=== PATIENT | female | born 1955 ===

== ENCOUNTER → 2021-12-23 08:04 | Outpatient (BNVA) | payer OTHER, SELFPAY | PROVIDERS: PCP Internal Medicine; Visit Provider Nurse Practitioner Family | DX: G24.01 Drug induced subacute dyskinesia (principal); G21.11 Neuroleptic induced parkinsonism; Z79.899 Other long term (current) drug therapy | CPT/HCPCS: 99212 ==

== ENCOUNTER → 2022-11-25 08:00 | Outpatient (BNVA) | payer MEDICARE, SELFPAY | PROVIDERS: PCP Internal Medicine; Visit Provider Nurse Practitioner Family | DX: G21.11 Neuroleptic induced parkinsonism (principal); G24.01 Drug induced subacute dyskinesia; G47.33 Obstructive sleep apnea (adult) (pediatric); Z98.890 Other specified postprocedural states; Z79.899 Other long term (current) drug therapy | CPT/HCPCS: 99212 ==

== ENCOUNTER 2023-05-09 08:01 | Outpatient (AMB) | payer MEDICARE, SELFPAY ==
[2023-05-09 08:02] VITALS: BP 110/80; PULSE 79; O2SAT 97; BMI 26.8
--- NOTE | 2023-05-09 08:02 | A.OFFVIS_ITS ---
Intake Vital Signs 05/09/23 08:02 Height 5 ft 3 in Weight 151 lb 8 oz BMI 26.8 BP 110/80 Blood Pressure Location Rt brachial Position Sitting Pulse 79 Pulse Source Pulse Oximeter Pulse Oximetry (%) 97 Oxygen Delivery Method Room Air Intake Visit Reasons: 4 mo f/u for Parkinson Intake Note: Pt presents as a 4 month f/u for tremors. just still shaking about the same. pt states she's not sleeping well. Signwriter Required: No Allergies Seasonal Allergies Allergy (Mild, Verified 05/09/23 08:08) Unknown sulfamethoxazole [From Bactrim] Allergy (Mild, Verified 05/09/23 08:08) Rash trimethoprim [From Bactrim] Allergy (Mild, Verified 05/09/23 08:08) Rash valbenazine [From Ingrezza] Adverse Reaction (Mild, Verified 05/09/23 08:08) Shakiness HPI HPI Comments History of Present Illness0 Details 67-yr-old male presents for f/u visit. Pt denies any significant interval medical changes. However, she has been having increased allergy symptoms- cough and sneezing. Notes she has not had her allergy injections in a while as her previous credentialing specialist and she is trying to establish care with a new one. She has had a 20lb weight loss over the last 6 months- pt thinks she is eating less d/t her coughing and stress. She has been referred to ENT and pulmonology. She has a f/u sleep appointment to manage her CPAP- at [facility]. Pt is now taking her Amantadine 100mg qam and 150mg q afternoon. Her tremor is increased. She states that she uses her CPAP, but she needs help to put it on and has difficulty adjusting it if the mask moves. Her tremor makes it difficult for her. She states she cannot fall asleep or sleep at all- is porne to some dozing off during the day. [facility] Medical History (Updated 05/09/23 @ 09:26 by ALMA ROSA Diamond) Bipolar disorder Obstructive sleep apnea Surgical History H/O: hysterectomy History of appendectomy Hx of cataract surgery Family History Mother HTN (hypertension) Father Cancer Social History (Updated 05/09/23 @ 08:15 by Jayne Lowe [facility]) Alcohol intake: never Patient Tobacco Use Status: Former Tobacco user Review of Systems Const All systems reviewed & are unremarkable except as noted in HPI and below Physical Exam Vital Signs: Last Vital Signs Pulse 79 05/09/23 08:02 BP 110/80 05/09/23 08:02 Pulse Ox 97 05/09/23 08:02 Oxygen Delivery Method Room Air 05/09/23 08:02 BMI result Body Mass Index 26.8 Const General: cooperative and no acute distress HEENT Head: Yes normocephalic Resp Effort & Inspection: normal respiratory effort and able to speak in complete sentences Neuro Other: Mild head tremor. BUE postural tremor No dyskinesias FFM and foot taps- slow, decreased. General: patient oriented x3, gait normal and CN's II-XI intact bilaterally Cognition (Neuro): normal cognition Motor exam (neuro): 5/5 motor strength present throughout Psych Appearance: grossly normal Mental Status: mental status grossly normal Speech and movement: Clear speech present Affect: normal affect Attitude: cooperative Thought process: Normal thought process present Assessment & Plan Assessment & Plan (1) Neuroleptic induced parkinsonism: Comment: h/o risperdal, Geodon, Abilify, Seroquel use. Code(s): G21.11 - Neuroleptic induced parkinsonism (2) Tremor: Code(s): R25.1 - Tremor, unspecified (3) Drug induced subacute dyskinesia: Code(s): G24.01 - Drug induced subacute dyskinesia Plan Continue Amantadine 100mg qam and 150mg q afternoon. Discussed strategies to improve sleep hygiene- using bedroom primarily for sleep, avoiding electronics in bed, establishing a bedtime ritual, and increasing daytime physical activity. Pt may benefit from repeat HST to assess status of sleep apnea as she has had significant weight loss- possibly she does not require PAP tx any longer, which may help her sleep quality (owing to her difficulty managing the PAP mask). F/u w/ credentialing specialist, ENT, pulmonology. Future considerations- if tremor remains increased after her resp s/s are better managed, consider increasing Amantadine. f/u in 4 months or sooner prn. Coding Level of Care Code Est Pt Level 4 (16905) Diagnoses Neuroleptic induced parkinsonism G21.11 Tremor R25.1 Drug induced subacute dyskinesia G24.01
== END 2023-05-09 08:55 | disposition home or self-care (01) ==
PROVIDERS: Visit Provider Nurse Practitioner Family
DX: G21.11 Neuroleptic induced parkinsonism (principal); G24.01 Drug induced subacute dyskinesia
CPT/HCPCS: 99214

== ENCOUNTER → 2023-05-09 08:01 | Outpatient (BNVA) | payer MEDICARE, SELFPAY | PROVIDERS: Visit Provider Nurse Practitioner Family | DX: G21.11 Neuroleptic induced parkinsonism (principal); G24.01 Drug induced subacute dyskinesia; R63.4 Abnormal weight loss; G47.33 Obstructive sleep apnea (adult) (pediatric); Z87.891 Personal history of nicotine dependence; Z68.26 Body mass index [BMI] 26.0-26.9, adult; Z99.89 Dependence on other enabling machines and devices | CPT/HCPCS: 99212 ==

== ENCOUNTER 2023-09-13 08:01 | Outpatient (AMB) | payer MEDICARE, SELFPAY ==
[2023-09-13 08:07] VITALS: BP 122/64; PULSE 70; O2SAT 98; BMI 25.0
--- NOTE | 2023-09-13 08:07 | A.OFFVIS_ITS ---
Intake Vital Signs 09/13/23 08:07 Height 5 ft 3 in Weight 141 lb BMI 25.0 BP 122/64 Blood Pressure Location Rt brachial Position Sitting Pulse 70 Pulse Source Pulse Oximeter Pulse Oximetry (%) 98 Oxygen Delivery Method Room Air Intake Visit Reasons: 4m follow up Parkinson-Confirmed Intake Note: Patient presents for 4 month follow up. Allergies Seasonal Allergies Allergy (Mild, Verified 09/13/23 08:11) Unknown sulfamethoxazole [From Bactrim] Allergy (Mild, Verified 09/13/23 08:11) Rash trimethoprim [From Bactrim] Allergy (Mild, Verified 09/13/23 08:11) Rash valbenazine [From Ingrezza] Adverse Reaction (Mild, Verified 09/13/23 08:11) Shakiness Medication List - Last Reconciled 09/13/23 by ALMA ROSA Diamond acetaminophen (Pain Relief Extra Strength (acetaminophen)) 1,000 mg PO BID PRN amantadine HCl 1.5 tabs qam and 1 tab q afternoon orally 2 times a day; 30 days amlodipine 10 mg PO DAILY aripiprazole 5 mg PO DAILY atorvastatin 20 mg PO DAILY baclofen 20 mg (2 x 10 mg) PO BEDTIME clonazepam 0.5 mg PO BID PRN clonazepam 2 mg PO BEDTIME famotidine 20 mg PO BID PRN fluticasone propionate 50 mcg/actuation (Flonase Allergy Relief) 2 sprays intranasal BID lamotrigine 50 mg PO BEDTIME lamotrigine (Lamictal) 100 mg PO DAILY levocetirizine 5 mg PO DAILY loratadine 10 mg PO DAILY PRN omeprazole 20 mg PO DAILY pantoprazole 20 mg PO DAILY polyethylene glycol 3350 17 grams PO DAILY sodium chloride 0.65% (Deep Sea Nasal) sprays intranasal trazodone 100 mg PO BEDTIME PRN valacyclovir 500 mg PO DAILY PRN HPI HPI Comments History of Present Illness Details 68-yr-old female presents for f/u visit, accompanied by her partner. Pt denies any significant interval medical history changes. She continues to have chronic cough. She has been seeing an irb compliance coordinator. She has been referred to ENT. She has continued to have weight loss. She is compliant w/ Omeprazole for GERD s/s. She continues to have head tremor. Her BUE tremor does make it difficult for her to cook, apply her make-up, write. She is compliant w/ Amantadine- can cause some nausea- but does take it w/ food. They wonder if previous trial of Ingrezza was long enough. [facility] Medical History (Updated 05/09/23 @ 09:26 by ALMA ROSA Diamond) Obstructive sleep apnea Bipolar disorder Surgical History Hx of cataract surgery H/O: hysterectomy History of appendectomy Family History Mother HTN (hypertension) Father Cancer Social History Alcohol intake: never Patient Tobacco Use Status: Former Tobacco user Review of Systems Const All systems reviewed & are unremarkable except as noted in HPI and below Physical Exam Vital Signs: Last Vital Signs Pulse 70 09/13/23 08:07 BP 122/64 09/13/23 08:07 Pulse Ox 98 09/13/23 08:07 Oxygen Delivery Method Room Air 09/13/23 08:07 BMI result Body Mass Index 25.0 Const General: cooperative and no acute distress Resp Effort & Inspection: normal respiratory effort and able to speak in complete sentences Neuro Other: General: A&O x's 3 Expression: Mildly decreased Voice: Intact Tremor: BUE rest tremor Neck: Bilateral posterior cervical tightness Gait: Steady gait Psych: Pleasant affect. Assessment & Plan Assessment & Plan (1) Neuroleptic induced parkinsonism: Comment: h/o risperdal, Geodon, Abilify, Seroquel use. Code(s): G21.11 - Neuroleptic induced parkinsonism (2) Tremor: Code(s): R25.1 - Tremor, unspecified (3) Obstructive sleep apnea: Code(s): G47.33 - Obstructive sleep apnea (adult) (pediatric) Plan Continue Amantadine 100mg qam and 150mg q afternoon- would not increase further d/t nausea and wt loss Discussed that pt did take Ingrezza for a long enough period- I would not advise trying this again- as it was not helpful, and her prominent movement concerns are tremor and not dyskinesia. Offered OT- to help pt learn adaptive strategies for doing ADLs. Pt will think about it. F/u w/ irb compliance coordinator, ENT, pulmonology. Future considerations- f/u HST to assess status of sleep apnea. Retrying RAFI [email or web address].. Botox- for head tremor. f/u in 4 months or sooner prn. Coding Level of Care Code Est Pt Level 4 (60841) Diagnoses Neuroleptic induced parkinsonism G21.11 Tremor R25.1 Obstructive sleep apnea G47.33
== END 2023-09-13 08:52 | disposition home or self-care (01) ==
PROVIDERS: PCP Internal Medicine; Visit Provider Nurse Practitioner Family
DX: G21.11 Neuroleptic induced parkinsonism (principal); G47.33 Obstructive sleep apnea (adult) (pediatric)
CPT/HCPCS: 99214

== ENCOUNTER → 2023-09-13 08:01 | Outpatient (BNVA) | payer MEDICARE, SELFPAY | PROVIDERS: PCP Internal Medicine; Visit Provider Nurse Practitioner Family | DX: G20.A1 Parkinson's disease without dyskinesia, without mention of fluctuations (principal); G21.11 Neuroleptic induced parkinsonism; R25.1 Tremor, unspecified; G47.33 Obstructive sleep apnea (adult) (pediatric) | CPT/HCPCS: 99212 ==

== ENCOUNTER 2024-01-17 08:17 | Outpatient (AMB) | payer MEDICARE, SELFPAY ==
--- NOTE | 2024-01-17 08:21 | MHC.OFFVIS ---
Intake Vital Signs 01/17/24 08:22 Height 5 ft 3 in Weight 139 lb BMI 24.6 BP 112/74 Blood Pressure Location Rt brachial Position Sitting Intake Visit Reasons: Tremor Intake Note: Patient presents for 4 month follow up Allergies Seasonal Allergies Allergy (Mild, Verified 01/17/24 08:25) Unknown sulfamethoxazole [From Bactrim] Allergy (Mild, Verified 01/17/24 08:25) Rash trimethoprim [From Bactrim] Allergy (Mild, Verified 01/17/24 08:25) Rash valbenazine [From Ingrezza] Adverse Reaction (Mild, Verified 01/17/24 08:25) Shakiness Medication List - Last Reconciled 01/17/24 by ALMA ROSA Diamond acetaminophen (Pain Relief Extra Strength (acetaminophen)) 1,000 mg PO BID PRN amantadine HCl 1.5 tabs qam and 1 tab q afternoon orally 2 times a day; 30 days amlodipine 10 mg PO DAILY atorvastatin 20 mg PO DAILY baclofen 20 mg (2 x 10 mg) PO BEDTIME clonazepam 0.5 mg PO BID PRN clonazepam 2 mg PO BEDTIME famotidine 20 mg PO BID PRN fluticasone propionate 50 mcg/actuation (Flonase Allergy Relief) 2 sprays intranasal BID lamotrigine 50 mg PO BEDTIME lamotrigine (Lamictal) 100 mg PO DAILY levocetirizine 5 mg PO DAILY loratadine 10 mg PO DAILY PRN omeprazole 20 mg PO DAILY pantoprazole 20 mg PO DAILY polyethylene glycol 3350 17 grams PO DAILY sodium chloride 0.65% (Deep Sea Nasal) sprays intranasal trazodone 100 mg PO BEDTIME PRN valacyclovir 500 mg PO DAILY PRN HPI HPI Comments History of Present Illness Details 68 -yr-old female presents for f/u visit. Accompanied by her partner. Pt reports she has been referred to hematology to evaluate recent blood test results, they could not clarify further. She has stopped Aripiprazole. States mood is stable. Pt continues to have head tremor, which she is not always aware of. Continues to have BUE tremor. The tremor can make it difficult for her to cook, pour drinks. She wonders if there are other treatments, wonders about Botox tx. She is compliant w/ Amantadine 100mg bid. States she tolerates this well- denies nausea. [facility] Medical History (Updated 05/09/23 @ 09:26 by ALMA ROSA Diamond) Obstructive sleep apnea Bipolar disorder Surgical History Hx of cataract surgery H/O: hysterectomy History of appendectomy Family History Mother HTN (hypertension) Father Cancer Social History Alcohol intake: never Patient Tobacco Use Status: Former Tobacco user Review of Systems Const All systems reviewed & are unremarkable except as noted in HPI and below Physical Exam Vital Signs: Last Vital Signs BP 112/74 01/17/24 08:22 BMI result Body Mass Index 24.6 Const General: cooperative and no acute distress Resp Effort & Inspection: normal respiratory effort and able to speak in complete sentences Neuro Other: General: A&O x's 3 Posture: Increased forward head posture w/ posterior and lateral cervical tightness, stooped w/ ephraim shoulders rolled forward Expression: Intact Voice: Intact Tremor: Mild head tremor, mild BUE postural tremor ILENE: BUE poor fluidity, more so on right Tone: BUE tone, more so on left Dyskinesia: Very mild intermittent oral movement FFM: BUE decreased Foot taps: BLE decreased fluidity, more so on left Gait: Stands easily, short steps, steady gait Psych: Pleasant affect. Assessment & Plan Assessment & Plan (1) Tremor: Code(s): R25.1 - Tremor, unspecified (2) Neuroleptic induced parkinsonism: Comment: h/o risperdal, Geodon, Abilify, Seroquel use. Code(s): G21.11 - Neuroleptic induced parkinsonism (3) Drug induced subacute dyskinesia: Code(s): G24.01 - Drug induced subacute dyskinesia Plan Discussed that although Botox can be helpful for head tremor, I would not recommend Botox for her, as she has increased forward head posture which increases the risk for excess cervical weakness following Botox tx. Discontinue Amantadine 100mg cap bid. Adjust and increase Amantadine to 100mg tab- 1.5 tabs in am and 1 tab q afternoon. Continue Baclofen 10-20mg qhs prn. Pt advised to start PT for tx of head tremor, posture, core. Pt advised to start OT for BUE tremor, as well as strategies to optimize ADL/IADL and adaptive equipment. Previous med trials: Benzotropine: ineffective. CD-LD- ineffective. Ingrezza- Possibly exaggerated Parkinsonian bradykinesia. f/u in 6 months. Orders: Orders OT Evaluation and Treatment Today G21.11 - Neuroleptic induced parkinsonism, R25.1 - Tremor, unspecified PT Evaluation and Treatment Today G21.11 - Neuroleptic induced parkinsonism, R25.1 - Tremor, unspecified Medications: Refilled amantadine HCl 1.5 tabs qam and 1 tab q afternoon orally 2 times a day; 30 days 75 tabs 3RF Coding Level of Care Code Est Pt Level 4 (26471) Diagnoses Tremor R25.1 Neuroleptic induced parkinsonism G21.11 Drug induced subacute dyskinesia G24.01
[2024-01-17 08:22] VITALS: BP 112/74; BMI 24.6
== END 2024-01-17 09:09 | disposition home or self-care (01) ==
PROVIDERS: PCP Internal Medicine; Visit Provider Nurse Practitioner Family
DX: G21.11 Neuroleptic induced parkinsonism (principal); G24.01 Drug induced subacute dyskinesia; Z79.899 Other long term (current) drug therapy
CPT/HCPCS: 99214

== ENCOUNTER → 2024-01-17 08:17 | Outpatient (BNVA) | payer MEDICARE, SELFPAY | PROVIDERS: PCP Internal Medicine; Visit Provider Nurse Practitioner Family | DX: R25.1 Tremor, unspecified (principal); G21.11 Neuroleptic induced parkinsonism; G24.01 Drug induced subacute dyskinesia | CPT/HCPCS: 99212 ==

== ENCOUNTER 2024-07-24 08:01 | Outpatient (AMB) | payer MEDICARE, SELFPAY ==
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
[2024-07-24 08:07] VITALS: BMI 23.6
== END 2024-07-24 08:51 | disposition home or self-care (01) ==
PROVIDERS: PCP Internal Medicine; Visit Provider Nurse Practitioner Family
DX: G21.11 Neuroleptic induced parkinsonism (principal); G24.01 Drug induced subacute dyskinesia; R25.1 Tremor, unspecified
CPT/HCPCS: 99214

== ENCOUNTER → 2024-07-24 08:01 | Outpatient (BNVA) | payer MEDICARE, SELFPAY | PROVIDERS: PCP Internal Medicine; Visit Provider Nurse Practitioner Family | DX: G21.11 Neuroleptic induced parkinsonism (principal); G24.01 Drug induced subacute dyskinesia | CPT/HCPCS: 99212 ==

== ENCOUNTER 2024-09-18 10:11 | Outpatient (REF) | payer MEDICARE, SELFPAY | END 2024-09-18 10:12 | disposition home or self-care (01) | LOC: HO.MRI 10:11 | PROVIDERS: PCP Internal Medicine; Visit Provider Nurse Practitioner Family | DX: R25.1 Tremor, unspecified (principal); R29.898 Other symptoms and signs involving the musculoskeletal system; R25.8 Other abnormal involuntary movements | CPT/HCPCS: 70551 ==

== ENCOUNTER 2025-01-16 08:26 | Outpatient (AMB) | payer MEDICARE, SELFPAY ==
--- OUTSIDE RECORDS SUMMARY | 2025-01-16 08:39 | XMS_ITS | Clinical Summary ---
[facility] Organization [facility] Address [address] [place] [address] Care Team Providers Care Manager Landscape Name Role Phone Unavailable Primary Care Provider Unavailabl e Social History Tobacco Use Types Packs/Day Years Used Date Smoking Tobacco: Never Assessed Comments Unknown Sex and Gender Information Value Date Recorded Sex Assigned at Not on file Legal Sex Female 8:16 PM EST Gender Identity Not on file Sexual Orientation Not on file Plan of Treatment Health Maintenance Due Date Last Done Comments Breast Cancer Screening 1955 DTaP,Tdap,and Td Vaccines (1 - Tdap) 1976 Pneumococcal Vaccine: 50+ Ye ars (1 of 1 - PCV) 2007 Zoster Vaccines (1 of 2) 2007 COVID-19 Vaccine ( - 2023-2 5 season) 2024 Colorectal Cancer Screening: Colonoscopy 07/11/2024 Depression Screening 07/11/2024 Falls Risk Assessment 07/11/2024 Hepatitis C Screening 07/11/2024 Osteoporosis Screening (Bone Density Screening) 07/11/2024 Social Influencers of Health Screening 07/11/2024 Influenza Vaccine (Season Ended) 2025 RSV Immunization Adult Patie nts (1 - 1-dose 75+ series) 2032 HIB Vaccines Aged Out No longer eligi ble based on patient's age to complete this topic HPV Vaccines Aged Out No longer eligi ble based on patient's age to complete this topic Hepatitis A Vaccines Aged Out No long er eligible based on patient's age to complete this topic Hepatitis B Vaccines Aged Out No long er eligible based on patient's age to complete this topic IPV Vaccines Aged Out No longer eligi ble based on patient's age to complete this topic MMR Vaccines Aged Out No longer eligi ble based on patient's age to complete this topic Meningococcal ACWY Vaccine Aged Out N o longer eligible based on patient's age to complete this topic Meningococcal B Vaccine Aged Out No l onger eligible based on patient's age to complete this topic RSV Immunization Patients Un carla 20 months Aged Out No longer eligible b ased on patient's age to complete this topic Varicella Vaccines Aged Out No longer eligible based on patient's age to complete this topic
[2025-01-16 08:42] VITALS: BP 140/70; PULSE 75; O2SAT 97
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
== END 2025-01-16 09:10 | disposition home or self-care (01) ==
LOC: HO.HSMS 08:26
PROVIDERS: PCP Internal Medicine; Visit Provider Nurse Practitioner Family
DX: G21.11 Neuroleptic induced parkinsonism (principal); G24.01 Drug induced subacute dyskinesia; G44.309 Post-traumatic headache, unspecified, not intractable
CPT/HCPCS: 99214

== ENCOUNTER → 2025-01-16 08:26 | Outpatient (BNVA) | payer MEDICARE, SELFPAY | PROVIDERS: PCP Internal Medicine; Visit Provider Nurse Practitioner Family | DX: G21.11 Neuroleptic induced parkinsonism (principal); G24.01 Drug induced subacute dyskinesia; G44.309 Post-traumatic headache, unspecified, not intractable | CPT/HCPCS: 99212 ==

== ENCOUNTER 2025-07-29 08:04 | Outpatient (AMB) | payer MEDICARE, SELFPAY ==
[2025-07-29 08:08] VITALS: BP 120/70; PULSE 58; O2SAT 99
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
--- OUTSIDE RECORDS SUMMARY | 2025-07-29 08:13 | XMS_ITS | Clinical Summary ---
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 Ziprasidone Hcl 06/16/2025 Other Reaction(s): tardive dyskynesia Medications No known medications Encounters Date Type Department Care Team Description 06/16/2025 12:40 PM EDT - 06/16/2025 4:46 PM EDT Emergency [facility] Emergency [address] [place] [address] Amanda Joyce DO Chest pain, unspecified type (Primary Dx) Discharge Disposition: Home or Self Care from Last 3 Months Medical History Medical History Date Comments Hypertension HLD (hyperlipidemia) Social History Tobacco Use Types Packs/Day Years Used Date Smoking Tobacco: Former Cigarettes Smokeless Tobacco: Never Tobacco Cessation:Counseling Given: Not Answered Comments Unknown Sex and Gender Information Value Date Recorded Sex Assigned at Not on file Legal Sex Female 8:16 PM EST Gender Identity Not on file Sexual Orientation Not on file Obstetrics History Last Filed Vital Signs Vital Sign Reading Time Taken Comments Blood Pressure 147/65 06/16/2025 3:16 PM EDT Pulse 64 06/16/2025 3:16 PM EDT Temperature 37.1 C (98.8 F) 06/16/2025 3:16 PM EDT Respiratory Rate 18 06/16/2025 3:16 PM EDT Oxygen Saturation 100% 06/16/2025 3:16 PM EDT Inhaled Oxygen Concentration - - Weight 54.9 kg (121 lb) 06/16/2025 12:15 PM EDT Height 162.6 cm (5' 4 ) 06/16/2025 12:15 PM EDT Body Mass Index 20.77 06/16/2025 12:15 PM EDT Plan of Treatment Health Maintenance Due Date Last Done Comments Breast Cancer Screening 1955 Colorectal Cancer Screening: Colonoscopy 1955 Cholesterol Screening (Lipid Panel) 07/11/2024 Falls Risk Assessment 07/11/2024 Hepatitis C Screening 07/11/2024 Medicare Annual Wellness Visit 07/11/2024 Osteoporosis Screening (Bone Density Screening) 07/11/2024 Social Influencers of Health Screening 07/11/2024 Depression Screening 10/03/2024 COVID-19 Vaccine ( season) 2025 07/14/2024, 07/18/2023, 08/09/2022, Additional history exists Influenza Vaccine (#1) 2025 , 07/16/2023, 07/18/2022, Additional history exists Hypertension/CHF/CAD Annual BMP Blood Test 06/16/2026 06/16/2025 DTaP,Tdap,and Td Vaccines (2 - Td or Tdap) 11/15/2027 11/15/2017 Zoster Vaccines Completed 04/07/2019, 02/03/2019 Pneumococcal Vaccine: 50+ Years Completed 09/09/2022, 08/05/2006 RSV Immunization Adult Patients Completed 09/05/2023 HIB Vaccines Aged Out No longer eligi [...] to complete this topic RSV Immunization Patients Under 20 months Aged Out No longer eligible based on patient's age to complete this topic Varicella Vaccines Aged Out No longer eligible based on patient's age to complete this topic Procedures Procedure Name Priority Date/Time Associated Diagnosis Comments ECG ANNOTATED 06/17/2025 CT ANGIO CHEST WO AND/OR W CONTRAST STAT 06/16/2025 3:32 PM EDT Chest pain, unspecified type ECG 12-LEAD STAT 06/16/2025 2:14 PM EDT TROPONIN I HIGH SENSITIVITY Timed 06/16/2025 1:47 PM EDT XR CHEST 2 VIEWS STAT 06/16/2025 12:3 4 PM EDT CBC WITH AUTO DIFFERENTIAL STAT 06/16/2025 12:19 PM EDT B-TYPE NATRIURETIC PEPTIDE STAT 06/16/2025 12:19 PM EDT MAGNESIUM STAT 06/16/2025 12:19 PM EDT LIPASE STAT 06/16/2025 12:19 PM EDT COMPREHENSIVE METABOLIC PANEL STAT 06/16/2025 12:19 PM EDT CBC AND DIFFERENTIAL STAT 06/16/2025 12:19 PM EDT TROPONIN I HIGH SENSITIVITY Timed 06/16/2025 12:19 PM EDT ECG 12-LEAD STAT 06/16/2025 12:12 PM EDT from Last 3 Months Results * ECG-Annotated (06/17/2025) us Provider Onbase MD ECG ORDERABLES Final Result * CT Angio Chest wo and/or w Contrast (06/16/2025 3:32 PM EDT) Anatomical Region Laterality Modality Body Computed Tomogra phy 06/16/2025 3:51 PM EDT Impressions 06/16/2025 3:59 PM EDT No pulmonary arterial emboli. No acute findings in the chest. Patulous esophagus which can be seen with gastroesophageal reflux.. -------- FINAL REPORT -------- Dictated By: LISA HODGSON Dictated Date: 06/16/2025 15:51 ET Assigned Physician: LISA HODGSON Reviewed and Electronically Signed By: LISA HODGSON Signed Date: 06/16/2025 15:59 ET Workstation ID: [id number] Transcribed By: Self Edit Transcribed Date: 06/16/2025 15:51 ET Narrative 06/16/2025 3:59 PM EDT PROCEDURE: Chest CTA INDICATION: Chest pain TECHNIQUE: Chest CTA with intravenous administration of 90cc ISOVUE 370. Multi planar reformats were created and interpreted. The examination was performed utilizing dose reduction techniques.3-D or MIP images were produced with postprocessing on an independent computer workstation. Total DLP 362 COMPARISON: 12/17/2016. FINDINGS: LUNGS/PLEURA: Central airways are patent. Mild bibasilar atelectasis. No pleural effusion or pneumothorax. CTA: No pulmonary arterial emboli. Thoracic aorta is normal in size. No dissection. No significant coronary artery calcifications. Exam was not tailored to evaluate the coronary arteries. MEDIASTINUM: Thyroid gland is normal. No mediastinal or hilar lymphadenopathy. Patulous esophagus. Cardiac chambers are normal in size. No pericardial effusion. CHEST WALL: No axillary lymphadenopathy or superficial hematoma. UPPER ABDOMEN:Stomach is decompressed and not well evaluated. Stool noted throughout colon. BONES: Bones are normal. Procedure Note Lisa Hodgson MD - 06/16/2025 PROCEDURE: Chest CTA INDICATION: Chest pain TECHNIQUE: Chest CTA with intravenous administration of 90cc ISOVUE 370.Multi planar reformats were created and interpreted. The examination wasperformed utilizing dose reduction techniques.3-D or MIP images wereproduced with postprocessing on an independent computer workstation.Total DLP 362 COMPARISON: 12/17/2016. FINDINGS: LUNGS/PLEURA: Central airways are patent. Mild bibasilar atelectasis. Nopleural effusion or pneumothorax. CTA: No pulmonary arterial emboli. Thoracic aorta is normal in size. Nodissection. No significant coronary artery calcifications. Exam was nottailored to evaluate the coronary arteries. MEDIASTINUM: Thyroid gland is normal. No mediastinal or hilarlymphadenopathy. Patulous esophagus. Cardiac chambers are normal insize. No pericardial effusion. CHEST WALL: No axillary lymphadenopathy or superficial hematoma. UPPER ABDOMEN:Stomach is decompressed and not well evaluated. Stool notedthroughout colon. BONES: Bones are normal. IMPRESSION: No pulmonary arterial emboli. No acute findings in the chest. Patulous esophagus which can be seen with gastroesophageal reflux.. -------- FINAL REPORT -------- Dictated By: LISA HODGSON Dictated Date: 06/16/2025 15:51 ET Assigned Physician: LISA HODGSON Reviewed and Electronically Signed By: LISA HODGSON Signed Date: 06/16/2025 15:59 ET Workstation ID: [id number] Transcribed By: Self Edit Transcribed Date: 06/16/2025 15:51 ET us Amanda Joyce DO IMG CT PROCEDURES Final Resul t * ECG 12 lead (06/16/2025 2:14 PM EDT) Only the most recent of2 resultswithin the time period is included. Ventricular Rate ECG 65 BPM GEMUSE Atrial Rate 65 BPM GEMUSE P-R Interval 132 ms GEMUSE QRS Duration 154 ms GEMUSE Q-T Interval 466 ms GEMUSE QTc 484 ms GEMUSE P Wave [place] 28 degrees GEMUSE R [place] 24 degrees GEMUSE T [place] 8 degrees GEMUSE ECG Interpretation Normal sinus rhythm Right bundle branch block Abnormal ECG When compared with ECG of 16-JUN-2025 12:12, No significant change was found Confirmed by Eileen MATTHEW YUFENG ([id number]) on 06/16/2025 4:40:25 PM GEMUSE 06/16/2025 2:14 PM EDT 06/16/2025 4:40 PM EDT us Harley KEYS ECG ORDERABLES Final Resul t GEMUSE * Troponin I high sensitivity (06/16/2025 1:47 PM EDT) Only the most recent of2 resultswithin the time period is included. High Sensitivity Troponin I 7 <=54 ng/L LAB CHEMISTRY METHOD 06/16/2025 2:39 PM EDT [facility] Blood Venous blood specimen / Unknown Venipuncture / Unknown 06/16/2025 1:47 PM EDT 06/16/2025 2:11 PM EDT Narrative [facility] - 06/16/2025 2:39 PM EDT High levels of biotin in samples may falsely decrease hsTroponin values. Use caution when interpreting hsTroponin results in patients taking biotin who exhibit renal impairment (eGFR <60) or in patients taking more than 20 mg/day of biotin. Harley KEYS LAB BLOOD ORDERABLES Final Result [facility] [address] [place] [address], [place] [phone] * XR Chest 2 Views (06/16/2025 12:34 PM EDT) Anatomical Region Laterality Modality Body Radiographic Laura ging 06/16/2025 12:4 4 PM EDT Impressions 06/16/2025 12:46 PM EDT FINDINGS/IMPRESSION: Lungs are clear. No pleural effusion or pneumothorax. Cardiac silhouette is normal in size. Bones are normal. -------- FINAL REPORT -------- Dictated By: LISA HODGSON Dictated Date: 06/16/2025 12:44 ET Assigned Physician: LISA HODGSON Reviewed and Electronically Signed By: LISA HODGSON Signed Date: 06/16/2025 12:46 ET Workstation ID: [id number] Transcribed By: Self Edit Transcribed Date: 06/16/2025 12:44 ET Narrative 06/16/2025 12:46 PM EDT XR CHEST 2 VIEWS INDICATION: Pain TECHNIQUE: XR CHEST 2 VIEWS COMPARISON: 10/15/2014 Procedure Note Lisa Hodgson MD - 06/16/2025 XR CHEST 2 VIEWS INDICATION: Pain TECHNIQUE: XR CHEST 2 VIEWS COMPARISON: 10/15/2014 IMPRESSION: FINDINGS/IMPRESSION: Lungs are clear. No pleural effusion orpneumothorax. Cardiac silhouette is normal in size. Bones are normal. -------- FINAL REPORT -------- Dictated By: LISA HODGSON Dictated Date: 06/16/2025 12:44 ET Assigned Physician: LISA HODGSON Reviewed and Electronically Signed By: LISA HODGSON Signed Date: 06/16/2025 12:46 ET Workstation ID: [id number] Transcribed By: Self Edit Transcribed Date: 06/16/2025 12:44 ET Harley KEYS IMG XR PROCEDURES Final Res ult * (ABNORMAL) CBC auto differential (06/16/2025 12:19 PM EDT) WBC 5.7 4.8 - 10.8 K/mcL LAB HEMETOLOGY METHOD 06/16/2025 1:00 PM EDT [facility] RBC 3.90 3.80 - 4.80 M/mcL [facility] Hemoglobin 12.0 11.5 - 16.0 g/dL LAB HEMETOLOGY METHOD [facility]16[facility]2025 [facility] Hematocrit 36.9 35.0 - 47.0 % LAB HEMETOLOGY METHOD 06/16[facility]2025 [facility] MCV 93.7 79.0 - 98.0 FL LAB HEMETOLOGY METHOD 06/16[facility]2025 [facility] MCH 30.5 27.0 - 32.0 pcg LAB HEMETOLOGY METHOD [facility]/16[facility]2025 [facility] MCHC 32.5 32.0 - 37.0 g/dL LAB HEMETOLOGY METHOD 06/16/2025 1:00 PM [facility] RDW 12.8 11.0 - 15.0 % LAB HEMETOLOGY METHOD 06/16/2025 1:00 PM [facility] Platelets 194 130 - 400 K/mcL LAB HEMETOLOGY METHOD 06/16/2025 1:00 PM [facility] MPV 9.7 7.0 - 11.0 FL LAB HEMETOLOGY METHOD 06/16/2025 1:00 PM [facility] NRBC 0.0 <1.0 % LAB HEMETOLOGY METHOD 06/16/2025 1:00 PM [facility] NRBC Absolute 0.00 <0.10 K/mcL LAB HEMETOLOGY METHOD 06/16/2025 1:00 PM [facility] Neutrophils Relative 48.6 % LAB HEMETOLOGY METHOD 06/16/2025 1:00 PM [facility] Lymphocytes Relative 40.0 % LAB HEMETOLOGY METHOD 06/16/2025 1:00 PM [facility] Monocytes Relative 9.5 % LAB HEMETOLOGY METHOD 06/16/2025 1:00 PM [facility] Eosinophils Relative 0.7 % LAB HEMETOLOGY METHOD 06/16/2025 1:00 PM [facility] Basophils Relative 0.5 % LAB HEMETOLOGY METHOD 06/16/2025 1:00 PM [facility] Immature Granulocytes Relative 0.7 % LAB HEMETOLOGY METHOD 06/16/2025 1:00 PM [facility] Neutrophils Absolute 2.77 1.50 - 7.00 K/mcL LAB HEMETOLOGY METHOD 06/16/2025 1:00 PM [facility] Lymphocytes Absolute 2.28 1.00 - 5.00 K/mcL LAB HEMETOLOGY METHOD 06/16/2025 1:00 PM EDT [facility] Monocytes Absolute 0.54 0.20 - 1.00 K/mcL LAB HEMETOLOGY METHOD 06/16/2025 1:00 PM EDT [facility] Eosinophils Absolute 0.04 0.00 - 0.50 K/mcL LAB HEMETOLOGY METHOD 06/16/2025 1:00 PM EDT [facility] Basophils Absolute 0.03 0.00 - 0.20 K/mcL LAB HEMETOLOGY METHOD 06/16/2025 1:00 PM EDT [facility] Immature Granulocytes Absolute 0.04(H) 0.00 - 0.03 K/[facility] LAB HEMETOLOGY METHOD 06/16/2025 1:00 PM EDT [facility] Blood Venous blood specimen / Unknown Venipuncture / Unknown 06/16/2025 12:19 PM EDT 06/16/2025 12:54 PM EDT us Harley KEYS LAB BLOOD ORDERABLES Final Result [facility] [address] [place] [address], [place] [phone] * B-type natriuretic peptide (06/16/2025 12:19 PM EDT) BNP 93 <=100 pcg/mL LAB CHEMISTRY METHOD 06/16/2025 1:44 PM EDT [facility] Blood Venous blood specimen / Unknown Venipuncture / Unknown 06/16/2025 12:19 PM EDT 06/16/2025 12:54 PM EDT us Harley KEYS LAB BLOOD ORDERABLES Final Result [facility] [address] [place] [address], [place] [phone] * Magnesium (06/16/2025 12:19 PM EDT) Pathologist [facility] Magnesium 2.0 1.9 - 2.6 mg/dL LAB CHEMISTRY METHOD 06/16/2025 1:29 PM EDT [facility] Blood Venous blood specimen / Unknown Venipuncture / Unknown 06/16/2025 12:19 PM EDT 06/16/2025 12:54 PM EDT Harley KEYS LAB BLOOD ORDERABLES Final Result Performing Organization Address City/[facility]/ZIP Co de Phone Number [facility] [address] [place] [address], [place] [phone] * Lipase (06/16/2025 12:19 PM EDT) Pathologist [facility] Lipase 20 13 - 75 unit/L LAB CHEMISTRY METHOD 06/16/2025 1:29 PM EDT [facility] Blood Venous blood specimen / Unknown Venipuncture / Unknown 06/16/2025 12:19 PM EDT 06/16/2025 12:54 PM EDT Harley KEYS LAB BLOOD ORDERABLES Final Result Performing Organization Address [facility]/ZIP Co de Phone Number [facility] [address] [place] [address], [place] [phone] * (ABNORMAL) Comprehensive metabolic panel (06/16/2025 12:19 PM EDT) Pathologist [facility] Sodium 132(L) 133 - 145 mmol/L LAB CHEMISTRY METHOD 06/16/2025 1:29 PM EDT [facility] Potassium 4.0 3.5 - 5.5 mmol/L LAB CHEMISTRY METHOD 06/16/2025 1:29 PM EDT [facility] Chloride 98 96 - 110 mmol/L LAB CHEMISTRY METHOD 06/16/2025 1:29 PM EDT [facility] CO2 26 21 - 32 mmol/L LAB CHEMISTRY METHOD 06/16/2025 1:29 PM [facility] Anion Gap 8 3 - 11 LAB CHEMISTRY METHOD 06/16/2025 1:29 PM [facility] Glucose 89 70 - 100 mg/dL LAB CHEMISTRY METHOD 06/16/2025 1:29 PM [facility] BUN 16 5 - 25 mg/dL LAB CHEMISTRY METHOD 06/16/2025 1:29 PM [facility] Creatinine 1.19(H) 0.50 - 1.10 mg/dL LAB CHEMISTRY METHOD 06/16/2025 1:29 PM [facility] eGFR 50(L) >=60 mL/min/1. 73m2 LAB CHEMISTRY METHOD 06/16/2025 1:29 PM [facility] Comment:Calculation based on the Chronic Kidney Disease Epidemiology Collaboration (CKD-EPI) equation refit without adjustment for race. BUN/Creatinine Ratio 13.4 LAB CHEMISTRY METHOD 06/16/2025 1:29 PM [facility] Calcium 9.3 8.5 - 10.5 mg/dL LAB CHEMISTRY METHOD 06/16/2025 1:29 PM [facility] AST (SGOT) 21 10 - 42 unit/L LAB CHEMISTRY METHOD 06/16/2025 1:29 PM [facility] ALT (SGPT) 28 10 - 60 unit/L LAB CHEMISTRY METHOD 06/16/2025 1:29 PM [facility] Alkaline Phosphatase 127(H) 42 - 121 unit/L LAB CHEMISTRY METHOD 06/16/2025 1:29 PM [facility] Total Protein 6.9 6.0 - 8.0 g/dL LAB CHEMISTRY METHOD 06/16/2025 1:29 PM [facility] Albumin 4.1 3.2 - 5.0 g/dL LAB CHEMISTRY METHOD 06/16/2025 1:29 PM EDT [facility] Total Bilirubin 0.4 0.0 - 1.4 mg/dL LAB CHEMISTRY METHOD 06/16/2025 1:29 PM EDT [facility] Blood Venous blood specimen / Unknown Venipuncture / Unknown 06/16/2025 12:19 PM EDT 06/16/2025 12:54 PM EDT us Harley KEYS LAB BLOOD ORDERABLES Final Result [facility] [address] [place] [address], from Last 3 Months Insurance MEDICAID - [place] [facility] MEDICARE [employer]AGE Care Teams 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
== END 2025-07-29 08:57 | disposition home or self-care (01) ==
LOC: HO.HSMS 08:05
PROVIDERS: PCP Internal Medicine; Visit Provider Nurse Practitioner Family
DX: R25.1 Tremor, unspecified (principal); G21.11 Neuroleptic induced parkinsonism; G24.01 Drug induced subacute dyskinesia; G44.309 Post-traumatic headache, unspecified, not intractable
CPT/HCPCS: 99214

== ENCOUNTER → 2025-07-29 08:04 | Outpatient (BNVA) | payer MEDICARE, SELFPAY | PROVIDERS: PCP Internal Medicine; Visit Provider Nurse Practitioner Family | DX: G21.11 Neuroleptic induced parkinsonism (principal); G44.309 Post-traumatic headache, unspecified, not intractable; G24.01 Drug induced subacute dyskinesia | CPT/HCPCS: 99212 ==